=== PATIENT | female | born 1930 | race Caucasian/White ===

== ENCOUNTER 2016-04-29 10:18 | Day surgery (SDC) | payer MEDICARE ==
[~2016-04-29] VITALS: Ht 162.6 cm
[~2016-04-29 10:18] MED LIST: ATIVAN-DPS0.5 MG PO; HYDROCODONE 7.7.5 MG PO; LOPRESSOR DPS50 MG PO; MAALOX DPS30 ML PO; METOCLOPRAMIDE H5 MG PO; NITROGLYCERIN0.4 MG SL; PROTONIX40 MG PO; SURFAK DPS240 MG PO; ZESTORETIC 10/11 TAB PO
--- NOTE | 2016-04-30 08:33 | OR ---
ADMIT: 04/29/2016 RM/LOC: [facility] MR#: [id number] [address] [facility] [address] [place] [id number] [address] [place] [address] Operative/Delivery Room Report SEX: F AGE: 85 : 1930 SURGERY DATE: 04/29/2016 SURGEON: Kinsey Mistry MD Procedure #1. RN DISCHARGE: None. PREOPERATIVE DIAGNOSES: 1. Right shoulder pain. 2. Right shoulder arthritis. POSTOPERATIVE DIAGNOSES: 1. Right shoulder pain. 2. Right shoulder arthritis. OPERATION: Right shoulder joint injection, anterior approach. INDICATIONS FOR PROCEDURE: The patient is a pleasant female with history of chronic right shoulder pain secondary to above-mentioned diagnoses, come here for planned right shoulder joint injection. ANESTHESIA: Local without sedation. ESTIMATED BLOOD LOSS: Zero. COMPLICATIONS: None immediately evident. DESCRIPTION OF THE PROCEDURE: After patient was seen in preoperative area, vital signs were taken. Prior to procedure, the risks, benefits, and alternative therapies were discussed at length. Patient consent was obtained and updated. The patient was taken to Fluoroscopy Suite and placed on a fluoroscopy table in a prone position. Pressure points were padded to comfort, monitors applied and a timeout performed. C-arm was brought in to identify the right shoulder joint. Lidocaine plain, 1%, approximately 1 mL was used to anesthetize the skin, underlying subcutaneous tissue. A 3.5 inch 22-gauge curved-tip needle was then advanced through the anesthetized skin and placed into the right shoulder joint space. Isovue-300 was injected into joint and showed good spread into the shoulder joint. After correct placement was confirmed, 3 mL of 1% lidocaine and 80 mg of Depo-Medrol were injected. The patient tolerated the procedure well without any complications. The patient was then brought to PACU where she recovered nicely. PLAN: The patient was examined after the conclusion of the procedure and had 60% reduction of pain. Discharge instructions were given, followup scheduled. 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 ADMIT: 04/29/2016 RM/LOC: [facility] MR#: [id number] [facility] [address] [id number] [address] [place] [address] Operative/Delivery Room Report SEX: F AGE: 85 : 1930 Procedure #2. RN DISCHARGE: None. PREPROCEDURE DIAGNOSES: 1. Lumbar disk degeneration. 2. Lumbosacral neuritis. 3. Lumbar stenosis. POSTPROCEDURE DIAGNOSES: 1. Lumbar disk degeneration. 2. Lumbosacral neuritis. 3. Lumbar stenosis. PROCEDURE PERFORMED: L5-S1 interlaminar epidural steroid injection. INDICATIONS FOR PROCEDURE: The patient is a pleasant female with history of chronic low back pain secondary to above-mentioned diagnoses, come here for planned lumbar epidural steroid injection. ANESTHESIA: Local without sedation. ESTIMATED BLOOD LOSS: Zero. COMPLICATIONS: None immediately evident. DESCRIPTION OF PROCEDURE: After the patient was seen in the preoperative area, vitals signs were taken. Prior to the procedure, the risks, benefits, and alternative therapies were discussed at length. Patient consent was obtained and updated. The patient was taken to the fluoroscopy suite and placed on the fluoroscopy table in the prone position. Pressure points were padded to comfort, monitors applied, and a timeout performed. Fluoroscopy was brought in. The patient was sterilely prepped and draped in the usual manner with ChloraPrep solution, and 1% lidocaine was used to anesthetize the appropriate needle entry site. Utilizing a midline approach, ADMIT: 04/29/2016 RM/LOC: [facility] MR#: [id number] [address] [address] [place], [place] [address] [address] [place] [address] Operative/Delivery Room Report SEX: F AGE: 85 : 1930 continuous loss of resistance technique with preservative-free normal saline and intermittent fluoroscopic guidance, the posterior epidural space was easily entered. Once the epidural space had been entered through L5-S1. The patient was injected with 2 mL of Isovue-300 and outlining of the posterior epidural space was observed with no evidence of vascular uptake and intrathecal migration. Next, a solution consisting of 10 mL of preservative- free normal saline and 40 mg of Depo-Medrol was injected. The needle was withdrawn. The patient was escorted back to the preoperative area and observed for a period of time. PLAN: Discharge instructions were given, followup scheduled. 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 Kinsey Mistry MD/ ken JOB #: [id number] CC: Kinsey Mistry, Attending Physician Fareed Prabhakar, Family Physician
== END 2016-04-29 11:48 | disposition home or self-care (01) ==
LOC: SSS 10:18
PROC: 3E0U33Z Introduction of Anti-inflammatory into Joints, Percutaneous Approach (ICD-10-PCS; principal; 2016-04-29)
PROC: 3E0U3BZ Introduction of Anesthetic Agent into Joints, Percutaneous Approach (ICD-10-PCS; principal; 2016-04-29)
DX: G89.29 Other chronic pain (principal); M19.011 Primary osteoarthritis, right shoulder; G30.9 Alzheimer's disease, unspecified; M12.9 Arthropathy, unspecified; J47.9 Bronchiectasis, uncomplicated; K59.00 Constipation, unspecified; I10 Essential (primary) hypertension; M51.16 Intervertebral disc disorders with radiculopathy, lumbar region; M79.1 Myalgia; M51.37 Other intervertebral disc degeneration, lumbosacral region; Z88.0 Allergy status to penicillin; M46.1 Sacroiliitis, not elsewhere classified; M47.814 Spondylosis without myelopathy or radiculopathy, thoracic region; M70.60 Trochanteric bursitis, unspecified hip; Z90.49 Acquired absence of other specified parts of digestive tract; Z90.710 Acquired absence of both cervix and uterus